=== PATIENT | male | born 1955 | race Caucasian/White ===

== ENCOUNTER 2017-02-01 17:08 | Emergency (ER) | payer BC, OTHER ==
[2017-02-01] MEDS ORDERED: Acetaminophen TAB* 325 MG PO ONE (18:46)
--- NOTE | 2017-02-01 18:53 | UC ---
Knee Pain HPI - HPI Summary HPI Summary: patient was working and felt sharp pain in the left knee. he cannot bear weight and ROM is limited - History of Current Complaint Chief Complaint: UCLowerExtremity Stated Complaint: LEFT KNEE INJURY Time Seen by Provider: 02/01/17 18:33 Hx Obtained From: Patient Onset/Duration: Sudden Onset, Lasting Hours Severity Initially: Severe Severity Currently: Severe Character: Throbbing Aggravating Factor(s): Movement, Weight Bearing, Prolonged Standing, Stairs Alleviating Factor(s): Nothing Associated Signs And Symptoms: Positive: Swelling, Weakness Able to Bear Weight: No - Allergies/Home Medications Allergies/Adverse Reactions: Allergies Allergy/AdvReac Type Severity Reaction Status Date / Time No Known Allergies Allergy Verified 02/01/17 17:42 Home Medications: Home Medications Lisinopril TAB* [Prinivil TAB*] 10 mg PO DAILY 02/01/17 [History Confirmed 02/01] PMH/Surg Hx/FS Hx/Imm Hx Previously Healthy: Yes - Surgical History Surgical History: Yes Surgery Procedure, Year, and Place: TONSILECTOMY, GALL BLADDER - Family History Known Family History: Positive: Hypertension - Social History Alcohol Use: Rare Substance Use Type: None Smoking Status (MU): Heavy Every Day Tobacco Smoker Amount Used/How Often: 1 pack per day Length of Time of Smoking/Using Tobacco: age 30 Have You Smoked in the Last Year: No Review of Systems Constitutional: Negative Skin: Negative Eyes: Negative ENT: Negative Respiratory: Negative Cardiovascular: Negative Gastrointestinal: Negative Genitourinary: Negative Motor: Negative Musculoskeletal: Arthralgia, Decreased ROM Neurological: Negative Psychological: Negative All Other Systems Reviewed And Are Negative: Yes Physical Exam Triage Information Reviewed: Yes Appearance: Well-Appearing, Well-Nourished, Pain Distress Vital Signs: Initial Vital Signs Temp 99.9 F 02/01/17 17:35 Pulse 67 02/01/17 17:35 Resp 16 02/01/17 17:35 BP 110/49 02/01/17 17:35 Pulse Ox 96 02/01/17 17:35 Vital Signs Reviewed: Yes Eye Exam: Normal Eyes: Positive: Conjunctiva Clear ENT Exam: Normal Respiratory Exam: Normal Cardiovascular Exam: Normal Musculoskeletal: Positive: Strength Limited @ - in left leg, ROM Limited @ - flx and ext of left knee, Edema @ - mild joint line effusion Neurological Exam: Normal Neurological: Positive: Alert, Muscle Tone Normal Skin Exam: Normal Knee Pain Course/Dx - Course Course Of Treatment: hx obtained, exam performed ,meds reviewed, xray obtained no fracture noted, tylenol given. knee immobilizer and jorden applied, patient has crutches, referral to ortho given. - Differential Dx/Diagnosis Differential Diagnosis/HQI/PQRI: Bursitis, Contusion, Fracture (Closed), Internal Derangement Of Knee, Sprain, Strain Provider Diagnoses: knee pain, left. knee swelling, left Discharge - Discharge Plan Condition: Stable Disposition: HOME Patient Education Materials: Knee Pain (ED) Referrals: Non Staff,Doctor [Primary Care Provider] - Shaan Vann MD [Medical Doctor] - Additional Instructions: 1. use the knee immoblizer and jorden wrap for swelling and support 2. You can take tylenol 100 mg every 8 hours. 3. Follow up with Dr Vann tomorrow
--- NOTE | 2017-02-01 19:08 | RAD ---
INDICATION: Medial knee pain COMPARISON: None TECHNIQUE: AP, lateral, tunnel, and sunrise views were obtained. FINDINGS: There are no acute bony findings. There is minor patellofemoral osteoarthritis. There is a small joint effusion. IMPRESSION: NO ACUTE BONY FINDINGS. MILD PATELLOFEMORAL OSTEOARTHRITIS AND SMALL JOINT EFFUSION
[2017-02-01 19:38] VITALS: BP 129/67
== END 2017-02-01 19:50 | disposition home or self-care (01) ==
LOC: UCCORT 17:08
DX: M25.562 Pain in left knee (principal); M25.462 Effusion, left knee; F17.210 Nicotine dependence, cigarettes, uncomplicated
CPT/HCPCS: 99213; A9270-GY; G0463

== ENCOUNTER 2018-11-14 07:00 | Emergency (ER) | payer BC, OTHER ==
[2018-11-14 07:18] VITALS: BP 154/74
[2018-11-14] MEDS ORDERED: DOXYcycline CAP(*) 100 MG PO ONE (07:26)
--- NOTE | 2018-11-14 07:27 | UC ---
Skin Complaint HPI - HPI Summary HPI Summary: 63 yo male had engorged tick removed from Left shoulder yesterday It was attached >48 hours (he suspects) no pain or itch slight erythema and swelling at bite site No hx TBI - History of Current Complaint Chief Complaint: UCSkin Time Seen by Provider: 11/14/18 07:20 Stated Complaint: SKIN CONCERN Hx Obtained From: Patient Onset/Duration: Sudden Onset, Lasting Days Timing: Constant Current Severity: None Pain Intensity: 0 Pain Scale Used: 0-10 Numeric Location: Discrete Character: Redness, Raised Aggravating Factor(s): Nothing Alleviating Factor(s): Nothing Associated Signs & Symptoms: Positive: Negative Related History: Insect Bite/Sting - Allergy/Home Medications Allergies/Adverse Reactions: Allergies Allergy/AdvReac Type Severity Reaction Status Date / Time No Known Allergies Allergy Verified 11/14/18 07:11 Home Medications: Home Medications raNITIdine HCl [Ranitidine HCl] 150 mg PO DAILY 11/14/18 [History Confirmed ] PMH/Surg Hx/FS Hx/Imm Hx Previously Healthy: Yes Endocrine History: Diabetes Cardiovascular History: Hypertension - Surgical History Surgical History: Yes Surgery Procedure, Year, and Place: TONSILECTOMY, GALL BLADDER - Family History Known Family History: Positive: Hypertension, Diabetes - Social History Alcohol Use: Rare Substance Use Type: None Smoking Status (MU): Heavy Every Day Tobacco Smoker Amount Used/How Often: 1/2 pack per day Length of Time of Smoking/Using Tobacco: age 30 Have You Smoked in the Last Year: No Review of Systems All Other Systems Reviewed And Are Negative: Yes Constitutional: Positive: Negative Skin: Positive: Negative Eyes: Positive: Negative ENT: Positive: Negative Respiratory: Positive: Negative Cardiovascular: Positive: Negative Gastrointestinal: Positive: Negative Genitourinary: Positive: Negative Motor: Positive: Negative Neurovascular: Positive: Negative Musculoskeletal: Positive: Negative Neurological: Positive: Negative Psychological: Positive: Negative Physical Exam Triage Information Reviewed: Yes Appearance: Well-Appearing, No Pain Distress, Well-Nourished Vital Signs: Initial Vital Signs Temp 97.9 F 11/14/18 07:13 Pulse 62 11/14/18 07:13 Resp 18 11/14/18 07:13 BP 154/74 11/14/18 07:13 Pulse Ox 97 11/14/18 07:13 Vital Signs Reviewed: Yes Eyes: Positive: Conjunctiva Clear ENT: Negative: Hearing grossly normal, Nasal congestion, Nasal drainage, Trismus , Muffled voice, Dental tenderness Neck: Positive: Supple, Nontender Respiratory: Positive: Lungs clear, Normal breath sounds, No respiratory distress, No accessory muscle use Cardiovascular: Positive: RRR, No Murmur Abdomen Description: Positive: Nontender Bowel Sounds: Positive: Present Musculoskeletal: Positive: ROM Intact Neurological: Positive: Alert Psychological Exam: Normal Skin Exam: Other - bite site with 4-5 mm of redness and slight swelling Course/Dx - Diagnoses Provider Diagnosis: Tick bite Discharge - Sign-Out/Discharge Documenting (check all that apply): Patient Departure All imaging exams completed and their final reports reviewed: No Studies - Discharge Plan Condition: Stable Disposition: HOME Patient Education Materials: Tick Bite (ED) Print Language: KYRGYZ Referrals: Emmanuel Watts MD [Primary Care Provider] - If Needed Additional Instructions: take both doxy with food this AM - Billing Disposition and Condition Condition: STABLE Disposition: Home
== END 2018-11-14 07:39 | disposition home or self-care (01) ==
LOC: UCCORT 07:00
DX: S40.262A Insect bite (nonvenomous) of left shoulder, initial encounter (principal); W57.XXXA Bitten or stung by nonvenomous insect and other nonvenomous arthropods, initial encounter; Y92.89 Other specified places as the place of occurrence of the external cause; E11.9 Type 2 diabetes mellitus without complications; I10 Essential (primary) hypertension; F17.210 Nicotine dependence, cigarettes, uncomplicated
CPT/HCPCS: 99212; A9270-GY; G0463

== ENCOUNTER 2019-04-12 08:03 | Emergency (ER) | payer OTHER, BC ==
[2019-04-12 08:17] VITALS: BP 120/55
--- NOTE | 2019-04-12 08:50 | UC ---
GI Bleed HPI - HPI Summary HPI Summary: 63-year-old male comes in with a chief complaint of diarrhea. Started about 10 days ago. It's watery has not seen any blood in it. He does have lower abdominal discomfort that comes and goes he does not describe any pain. No fevers or chills. Reports he goes 6-10 times a day to include in the middle the night. He did have antibiotics in February 2019 but nothing more recent than that. Feels tired because he is having a hard time getting a full night's sleep but otherwise feels well. Does not feel dehydrated. No nausea. - History Of Current Complaint Chief Complaint: UCGI Stated Complaint: DIARRHEA/ADB PAIN Time Seen by Provider: 04/12/19 08:36 Pain Intensity: 0 - Allergies/Home medications Allergies/Adverse Reactions: Allergies Allergy/AdvReac Type Severity Reaction Status Date / Time No Known Allergies Allergy Verified 04/12/19 08:17 Home Medications: Home Medications Loperamide CAP* [Imodium CAP*] 2 mg PO Q4H PRN 04/12/19 [History Confirmed 04/12] PMH/Surg Hx/FS Hx/Imm Hx Previously Healthy: Yes Endocrine History: Diabetes, Dyslipidemia Cardiovascular History: Hypertension - Surgical History Surgical History: Yes Surgery Procedure, Year, and Place: TONSILECTOMY, GALL BLADDER - Family History Known Family History: Positive: Hypertension, Diabetes - Social History Alcohol Use: Rare Substance Use Type: None Smoking Status (MU): Former Smoker Amount Used/How Often: 1/2 pack per day Length of Time of Smoking/Using Tobacco: age 30 Have You Smoked in the Last Year: No When Did the Patient Quit Smoking/Using Tobacco: 2018 Review of Systems All Other Systems Reviewed And Are Negative: Yes Constitutional: Positive: Other - SEE HPI Skin: Positive: Negative Eyes: Positive: Negative ENT: Positive: Negative Respiratory: Positive: Negative Cardiovascular: Positive: Negative Gastrointestinal: Positive: Diarrhea Genitourinary: Positive: Negative Motor: Positive: Negative Neurovascular: Positive: Negative Musculoskeletal: Positive: Negative Neurological: Positive: Negative Psychological: Positive: Negative Is Patient Immunocompromised?: No Physical Exam Triage Information Reviewed: Yes Appearance: Well-Appearing, No Pain Distress, Well-Nourished Vital Signs: Initial Vital Signs Temp 97.7 F 04/12/19 08:12 Pulse 78 04/12/19 08:12 Resp 18 04/12/19 08:12 BP 120/55 04/12/19 08:12 Pulse Ox 99 04/12/19 08:12 Vital Signs Reviewed: Yes Eye Exam: Normal Eyes: Positive: Conjunctiva Clear ENT: Positive: Other - ORAL MUCOSA MOIST Neck: Positive: Supple Respiratory: Positive: Lungs clear, Normal breath sounds, No respiratory distress Cardiovascular: Positive: RRR Abdomen Description: Positive: Nontender, Soft Bowel Sounds: Positive: Present Musculoskeletal: Positive: Strength Intact, ROM Intact Neurological: Positive: Alert Psychological: Positive: Age Appropriate Behavior Skin Exam: Normal Bleed Course/Dx - Course Course Of Treatment: Patient has no fever he is of no abdominal pain. Denies any blood in the stool. Does not feel ill. No recent antibiotics. Imodium he's been taking has not really been helping much. Patient wishes to go see his lobbyist Dr. Allen here in [facility]. I recommended that he go see Dr. Allen he is planning on going to see him today. Also discussed that if his condition worsened where he got any blood in his stools fevers chills abdominal pain and he needed further evaluation right away in the emergency department. - Differential Dx/Diagnosis Provider Diagnosis: Diarrhea Discharge ED - Sign-Out/Discharge Documenting (check all that apply): Patient Departure All imaging exams completed and their final reports reviewed: No Studies - Discharge Plan Condition: Stable Disposition: HOME Patient Education Materials: Acute Diarrhea (ED) Referrals: Emmanuel Watts MD [Primary Care Provider] - Sohail Allen MD [Medical Doctor] - Additional Instructions: FOLLOW UP WITH DR ALLEN, GASTROENTEROLOGY. GET REEVALUATED SOONER IF NOT IMPROVING OR GO TO THE EMERGENCY DEPARTMENT IF YOUR CONDITION WORSENS; PAIN, FEVER, BLOOD IN YOUR STOOL, YOU FEEL ILL OR ANY QUESTIONS OR CONCERNS - Billing Disposition and Condition Condition: STABLE Disposition: Home
--- NOTE | 2019-04-17 07:05 | UC ---
- Progress Note Progress Note: Neg shiga Neg giardia neg crypto neg wbc no change ljj 04/17/19 Course/Dx - Diagnoses Provider Diagnoses: Diarrhea Discharge ED - Sign-Out/Discharge Documenting (check all that apply): Post-Discharge Follow Up All imaging exams completed and their final reports reviewed: No Studies - Discharge Plan Condition: Stable Disposition: HOME Patient Education Materials: Acute Diarrhea (ED) Referrals: Sohail Allen MD [Medical Doctor] - Emmanuel Watts MD [Primary Care Provider] - Additional Instructions: FOLLOW UP WITH DR ALLEN, GASTROENTEROLOGY. GET REEVALUATED SOONER IF NOT IMPROVING OR GO TO THE EMERGENCY DEPARTMENT IF YOUR CONDITION WORSENS; PAIN, FEVER, BLOOD IN YOUR STOOL, YOU FEEL ILL OR ANY QUESTIONS OR CONCERNS - Billing Disposition and Condition Condition: STABLE Disposition: Home
== END 2019-04-12 09:11 | disposition home or self-care (01) ==
LOC: UCCORT 08:03
DX: R19.7 Diarrhea, unspecified (principal); E11.9 Type 2 diabetes mellitus without complications; I10 Essential (primary) hypertension; Z87.891 Personal history of nicotine dependence
CPT/HCPCS: 99212; G0463